=== PATIENT | female | born 1980 | race Two or more races ===

== ENCOUNTER → 2024-12-08 | Day surgery (SDC) | payer MEDICAID ==
[2024-12-04 11:43] LABS: Basophils # (auto) 0 10 ^3/uL (0-0.2); Basophils % (auto) 0.4 % (0.0-2.0); Eosinophils % (auto) 14.5 % (0.0-7.0); Hematocrit 43.7 % (36.0-46.0); Lymphocytes # (auto) 2.2 10 ^3/uL (0.4-5.4); Lymphocytes % (auto) 32.1 % (10.0-50.0); Mean Corpuscular Hemoglobin 30.5 pg (28.0-32.0); Mean Corpuscular Hgb Conc. 34.2 g/dL (32.0-36.0); Mean Corpuscular Volume 88.9 fL (80.0-100.0); Monocytes # (auto) 0.5 10 ^3/uL (0-1.3); Monocytes % (auto) 7.4 % (0.0-12.0); Neutrophils # (auto) 3.1 10 ^3/uL (1.6-8.6); Neutrophils % (auto) 45.6 % (37.0-80.0); Platelet Count (auto) 221 10^3/uL (140-450); Red Blood Cells 4.92 10^6/uL (4.0-5.20); Red Cell Distribution Width 12.9 % (11.8-14.3); White Blood Cell 6.7 10^3/uL (4.4-10.8)
[2024-12-04 11:47] LABS: Urine Bacteria FEW /hpf (None Seen); Urine Blood Negative /uL (Negative); Urine Clarity Clear (Clear); Urine Color Light-Yellow (Yellow); Urine Protein, UAD Negative (Negative); Urine Specific Gravity 1.009 (1.001-1.035); Urine Squamous Epithelial Cell None Seen /hpf (<5); Urine Urobilinogen Normal (Negative); Urine WBC < 1 /HPF (0-5); Urine pH 5.5 (5.0-9.0)
[2024-12-04 11:56] LABS: INR 1.02 (0.9-1.15); Partial Thromboplastin Time 27.8 SEC (24.5-34.5); Prothrombin Time 10.8 sec (9.3-11.8)
[2024-12-04 12:04] LABS: Alanine Aminotransferase 15 U/L (7-40); Albumin 4.6 g/dL (3.2-4.8); Alkaline Phosphatase 86 U/L (46-116); Anion Gap 7 (5-15); Aspartate Aminotransferase 15 U/L (13-40); BUN/Creatinine Ratio 12.7 (10.0-20.0); Bilirubin, Total 0.5 mg/dL (0.2-1.0); Blood Urea Nitrogen 15 mg/dL (9-23); Carbon Dioxide 27 mmol/L (20-31); Chloride 107 mmol/L (98-107); Glucose 83 mg/dL (74-106); Potassium 4.3 mmol/L (3.5-5.1); Sodium 141 mmol/L (136-145); Total Protein 7.2 g/dL (5.7-8.2)
[2024-12-04 12:05] LABS: Calcium 10.8 mg/dL (8.7-10.4)
[~2024-12-08] VITALS: Ht 160 cm; Wt 61.2 kg
[~2024-12-08] MED LIST: ALB5IS NEB; AMLO1TAB23 PO; BUDE1AER16 IN; FLUMAZENIL 0.1 MG/ML INJ 10ML MDV IV ONE; LIDOCAINE VISCOUS 2% 15ML UD ONE; MIDAZOLAM HCL 5 MG/ML-1ML VIAL ONE; MORP15TA PO; NALOXONE HCL 0.4 MG/ML VIAL ONE; OME20GT GT; PERCOT GT; SODIUM CHLORIDE LOCK 10 ML ONE; diphenhdrAMINE HCL 50 MG/1 ML VL ONE; fentaNYL CITRATE 100 MCG/2 ML VL ONE
[2024-12-08 15:15] VITALS: PULSE 119; RESP 20; O2SAT 98
[2024-12-08 15:30] VITALS: TEMP 98.7
--- NOTE | 2024-12-08 15:48 | DVHOP2 ---
Operative Report DATE OF OPERATION: 12/08/24 PROCEDURE: Upper Endoscopy with biopsy and dilate esophagus unguided. PREOPERATIVE INDICATION: The patient is a 44 -year-old female undergoing endoscopy for nausea vomiting GERD and dysphagia POSTOPERATIVE DIAGNOSES: 1. Patient had a 1 cm sliding-type hiatal hernia with grade a erosive esophagitis slightly irregular squamocolumnar junction 2. Minimal gastritis otherwise normal examination up to the 2nd and 3rd part of the duodenum 3. GE junction was dilated with Cruz number [id number] PROCEDURE PERFORMED BY: Dani Murphy GI NURSE: Mariana SCOPE: Olympus videoendoscope. ASA CLASS: 3. PREOPERATIVE MEDICATIONS: Versed 5 mg, Fentanyl 100 mcg, Benadryl 50 mg I administered moderate sedation throughout this _9_ minutes procedure. An independent trained observer pushed medications at my direction, and monitored the patient's level of consciousness and physiological status throughout. PROCEDURE IN DETAIL: After obtaining an informed consent, the patient was placed on left lateral decubitus position. The patient was then sedated with the above medications. A bite block was placed between her teeth. The endoscope was then passed through the oropharynx, into the esophagus, and through the stomach and pylorus up to the second and third part of the duodenum. The endoscope was then withdrawn. The 2nd and 3rd part of the duodenum and the duodenal bulb were normal. Duodena l biopsies were obtained The pre-pyloric area and antrum and body showed mild gastritis. Gastric biopsies were obtained. On retroflexion the fundus cardia and angularis were normal. Duodenal and gastric biopsies were obtained. The endoscope was then withdrawn into the distal esophagus where the patient had a 1 cm sliding-type hiatal hernia with slightly irregular squamocolumnar junction grade a erosive esophagitis The endoscope was then withdrawn. Subsequently Cruz dilator number 44 were passed through the distal esophagus with no significant resistance Repeat endoscopy confirmed adequate dilatation. There was no mucosal injury. GE junction biopsies were obtained. The patient tolerated the procedure well without difficulty. COMPLICATIONS : None SPECIMENS: Duodenal biopsies Gastric biopsies GE junction biopsies DISPOSITION: Discharge to home Stable PLAN: 1. Await for biopsy result 2. Will place pt on Protonix 40 mg p.o. daily 3. Lifestyle and dietary modifications for GERD 4. Chew food well and drink warm liquids with the meals 5. Outpatient follow up with me in 4-6 weeks to review results and discuss further management DANI MURPHY MD Dec 08, 2024 15:48
[2024-12-08 16:05] VITALS: BP 108/61; PULSE 76; RESP 17; O2SAT 100
== END | disposition home or self-care (01) ==
LOC: GI 12:27
PROVIDERS: ATTEND Internal Medicine Gastroenterology
DX: K21.00 Gastro-esophageal reflux disease with esophagitis, without bleeding (principal); R13.10 Dysphagia, unspecified; K44.9 Diaphragmatic hernia without obstruction or gangrene; K29.50 Unspecified chronic gastritis without bleeding; I10 Essential (primary) hypertension; J45.909 Unspecified asthma, uncomplicated; Z88.5 Allergy status to narcotic agent; Z90.710 Acquired absence of both cervix and uterus; Z98.890 Other specified postprocedural states; Z85.53 Personal history of malignant neoplasm of renal pelvis; Z90.49 Acquired absence of other specified parts of digestive tract
CPT/HCPCS: 36415; 43239; 43450; 80053; 81001; 84702; 85025; 85610; 85730; 88305; 88312; 88342; J1200; J2250; J3010; J7030; 99152